=== PATIENT | female | born 1990 | race Caucasian/White ===

== ENCOUNTER 2017-12-26 12:58 | Emergency (ER) | END 2017-12-26 16:42 | disposition home or self-care (01) ==

== ENCOUNTER 2018-10-06 00:53 | Emergency (ER) | payer OTHER ==
[~2018-10-06] VITALS: Wt 72.8 kg
[~2018-10-06 00:53] MED LIST: CIPR500T4 PO; HYDR-4011 PO; ONDA8TAB14 PO
[2018-10-06 00:56] VITALS: BP 117/80; PULSE 83; RESP 18
[2018-10-06] MEDS ORDERED: TRAM50TA2 PO (01:10)
[2018-10-06] MEDS ORDERED: CLIN300C10 PO (01:10)
--- NOTE | 2018-10-06 01:13 | ERD ---
ER Documentation Chief Complaint Chief Complaint SWELLING ON LEFT JAW S/P ROOT CANAL WEDS HPI 28-year-old female presents after root canal 2 days ago. She feels like there is some increase in swelling and pain over the last day. She denies any fevers, difficulty swallowing, difficulty breathing. She does not have a follow-up appointment with a dentist. She is supposed to follow-up by phone. ROS All systems reviewed and are negative except as per history of present illness. Medications Home Meds Active Scripts Tramadol HCl (Tramadol HCl) 50 Mg Tablet, 50 MG PO Q4 PRN for PAIN, #15 TAB Prov:KAYCE GONZALES MD 10/06/18 Clindamycin Hcl* (Clindamycin Hcl*) 300 Mg Capsule, 300 MG PO TID for 7 Days, CAP Prov:KAYCE GONZALES MD 10/06/18 Ciprofloxacin Hcl* (Ciprofloxacin Hcl*) 500 Mg Tablet, 500 MG PO BID for 5 Days, TAB Prov:KRISTIE GARCIA PA-C 12/26/17 Hydrocodone/Acetaminophen ([place] 5-325 Tablet) 1 Each Tablet, 1 TAB PO Q6H PRN for PAIN, #20 TAB Prov:KRISTIE GARCIA-C 12/26/17 Ondansetron (Ondansetron Odt) 8 Mg Tab.rapdis, 8 MG PO Q6H PRN for NAUSEA AND/OR VOMITING, #30 TAB Prov:KRISTIE GARCIA-C 12/26/17 Allergies Allergies: Coded Allergies: No Known Allergy (Unverified , 10/06/18) PMhx/Soc History of Surgery: No Hx Neurological Disorder: No Hx Respiratory Disorders: Yes (ASTHMA) Hx Cardiac Disorders: No Hx Psychiatric Problems: No Hx Miscellaneous Medical Probl: No Hx Alcohol Use: Yes (OCCASSIONAL) Hx Substance Use: No Hx Tobacco Use: No Smoking Status: Never smoker FmHx Family History: No diabetes, No coronary disease, No other Physical Exam Vitals Vital Signs Date Temp Pulse Resp B/P (MAP) Pulse Ox O2 O2 Flow FiO2 Time Delivery Rate 10/06/18 98.5 83 18 117/80 99 00:56 (92) Physical Exam Const: No acute distress Head: Atraumatic Eyes: Normal Conjunctiva ENT: Normal External Ears, Nose and Mouth. Healing left lower molar dental work. Mild swelling of the gums. No facial erythema or induration. Mild swelling near the corresponding area of the left mandible. No fluctuance or discharge. Airway patent. Neck: Full range of motion. No meningismus. Resp: Clear to auscultation bilaterally Cardio: Regular rate and rhythm, no murmurs Abd: Soft, non tender, non distended. Normal bowel sounds Skin: No petechiae or rashes Back: No midline or flank tenderness Ext: No cyanosis, or edema Neur: Awake and alert Psych: Normal Mood and Affect Results 24 hrs Current Medications Medications Dose Sig/Darwin Start Time Status Last (Trade) Ordered Route PRN Stop Time Admin Dose Reason Admin Clindamycin 300 mg ONCE ONCE 10/06/18 10/06/18 HCl PO 01:30 10/06/18 01:21 (Cleocin) 01:31 Tramadol 50 mg ONCE ONCE 10/06/18 10/06/18 HCl PO 01:30 10/06/18 01:20 (Ultram) 01:31 Procedures/MDM Patient presents some swelling and pain after root canal 2 days ago. Uncertain of swelling as normal postoperative swelling on there is no significant facial cellulitis and no evidence of airway obstruction or acute significant abscess. Nonetheless given possible increase in swelling and pain we will switch to clindamycin and add tramadol for severe pain. She should continue the ibuprofen and discontinue amoxicillin she is taking. Follow-up with dentist this week. The patient was stable with no new complaints during the ER course. Clinically, there is no current evidence to suggest meningitis, sepsis, acute abdomen, pneumonia, stroke, acute coronary syndrome, pulmonary embolism, aortic dissection or any other emergent condition appearing to require further evaluation or hospitalization. Patient counseled regarding my diagnostic impression and care plan. Prior to discharge all questions answered. Pt agrees with treatment plan and understands strict return precautions. Pt is instructed to follow up with primary care provider within 24-48 hours. Precautionary instructions provided including instructions to return to the ER if not improving or for any worsening or changing symptoms or concerns. Departure Diagnosis: Primary Impression: Toothache Condition: Stable Patient Instructions: Dental Pain Additional Instructions: Continue ibuprofen. Recommend stop amoxicillin and will switch to clindamycin. See dentist for follow-up. Recheck for worsening swelling, fevers, new symptoms. KAYCE GONZALES MD Oct 06, 2018 01:13
[2018-10-06] MEDS ORDERED: traMADol 50 MG TAB PO ONE (01:30)
[2018-10-06] MEDS ORDERED: CLINDAMYCIN 300 MG CAP PO ONE (01:30)
== END 2018-10-06 01:36 | disposition home or self-care (01) ==
LOC: FTE 00:53
DX: K08.89 Other specified disorders of teeth and supporting structures (principal); R40.2142 Coma scale, eyes open, spontaneous, at arrival to emergency department; R40.2362 Coma scale, best motor response, obeys commands, at arrival to emergency department; R40.2252 Coma scale, best verbal response, oriented, at arrival to emergency department; J45.909 Unspecified asthma, uncomplicated
CPT/HCPCS: Z7502; Z7610; 99283